=== PATIENT | female | born 1995 | race Hispanic/Latino ===

== ENCOUNTER 2017-05-14 14:42 | Emergency (ER) | payer MEDICAID ==
--- NOTE | 2017-05-14 15:48 | OBHP ---
Datetime: 05/14/2017 15:43 IP Adm Impression: , intrauterine IP Admit Plan: Discharge home Admit Comment, IP Provider: at 36=weeks ca,e with c/o dec movemnt. sh feels the baby but less, no ctxs, vbno lf. obhx primi pmh den med pnv all nkda psh den soch de zainab bpp 11/26 cep/post/wnl/6.5lb a/p at 36=weeks dec fm dc home ptl given po hyr f/u dr collazo on friday Pelvic Type - PN: Adequate Extremities - PN: Normal Abdomen - PN: Normal Back - PN: Normal Breast - PN: Normal Lungs - PN: Normal Heart - PN: Normal Thyroid - PN: Normal Neurologic - PN: Normal HEENT - PN: Normal General - PN: Normal FHR - Baseline A Provider: 130 Contraction Comments Provider: none EGA AdmitDate IP: 36.3 Vital Signs Provider: Reviewed; Within Normal Limits IP Chief Complaint: Decreased movement NICHD Variability Prov Fetus A: Moderate 6-25bpm NICHD Accel Fetus A IP Provider: 15X15 FHR Category Provider Fetus A: Category I Genitourinary Exam: Normal DTRs - PN: Normal
--- NOTE | 2017-05-14 15:54 | US ---
OB limited/biophysical profile Comparison: None available. Technique: Real-time ultrasound was performed through the pelvis. Findings: There is a single living fetus in cephalic presentation. Posterior placenta. The placenta is not previa. There are no adnexal masses or cysts evident. Cervix length measures approximately 4.0 cm. Measurements and calculations: Fetus has a composite sonographic age of 36 weeks 2 days. This calculation is based on the biparietal diameter, head circumference, abdominal circumference, and femur length. Estimated heart rate 140.7 beats per min. Estimated weight: 2883 g 432.5 g DAYDAY measures approximately 12.3 cm, within normal limits. Biophysical profile: movements 2/2 breathing 2/2 tone 2/2 Amniotic fluid 2/2 Total score impression: 11/26 Impression: Single living fetus with a composite sonographic age of 36 weeks 2 days. Estimated heart rate 140.7 beats per min. Biophysical profile of 8 out of 8.
--- NOTE | 2017-05-14 16:03 | OBDCSUM ---
Datetime: 05/14/2017 16:00 Discharged to, Provider: Home Follow up at, Provider: 05/20/17 Disch Instr Diet: Regular Follow up in weeks, Provider: dr collazo Disch Activity Restrictions: Nothing in vagina - [place], tampons, douche Discharge Comment, Provider: ptl given po hy Discharge Diagnosis Prov Other: 36week dec fm nst
[2017-05-14 20:42] VITALS: BP 113/67; PULSE 89
== END 2017-05-14 16:40 | disposition home or self-care (01) ==
LOC: C.EROB 14:42
DX: O36.8130 Decreased fetal movements, third trimester, not applicable or unspecified (principal); Z3A.36 36 weeks gestation of pregnancy

== ENCOUNTER 2017-05-25 09:21 | Inpatient (IN) | payer MEDICAID ==
[2017-05-25 09:53] VITALS: BMI 27.7
[2017-05-25] MEDS ORDERED: Lactated Ringer's 1,000 ML IV SCH ×2 (10:00)
--- NOTE | 2017-05-25 10:20 | OBADHP ---
Datetime: 05/25/2017 09:58 Admit Comment, IP Provider: This is a private patient of Dr. Barker 21 y.o. , LMP 08/23/16, RAFY 06/02/17, EGA 39 weeks, C/O Ctx - onset 05/24/17, 1000 hours; proceede d all day; stronger 05/25/17, 0100 hours, pain scale 10/10 every 3-4 minutes. (+) AFM; denies LOF, VB. Last had sexual intercourse 2 weeks ago. care; Dr. Barker; noted for anemia on iron. 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 Denies STIs; not candidate for Pap PMH: denies PSH: denies NKDA Meds: PNV, iron - each, QD Soc Hx: denies tobacco, illicit drug or EtOH use. With FOB x 1 yr; living together since 12/2016. Unemployed. Fam Hx: Mother and Father both alive. Doesn't knw their ages; both, no med issues. No known fam h/ o cancer P.E.: as above. WD in NAD. Awake, alert, oriented to time, person and place. Pleasant and cooperat jennifer. Accompanied by FOB Assessment: 21 y.o. P0, 39 weeks, active labor. Anemia on meds. GBS (-). Category 1 tracing. D/W patient epidural - receptive. Clincally stable Plan: 1) Admit 2) NPO 3) IVFs 4) Continuous EFM 5) Admission labs, incl HIV, RPR, UDS 6) Epidural 7) Anticipate vaginal delivery - as per, and discussed wiht Dr. Barker Weight - Estimated: 3632 Presentation-Admit: Vertex FHR - Baseline A Provider: 135 Contraction Comments Provider: irregular Comments, ACOG Physical Exam: Abdomen: Gravid. Soft. Non tender. Fundal height 7 cm All other systems reviewed and are negative Gestation - Est Wks by US: 39.0 IP Hx Assessment: The History has been Reviewed and is Current Vital Signs Provider: Reviewed; Within Normal Limits IP Chief Complaint: Uterine contractions NICHD Variability Prov Fetus A: Moderate 6-25bpm NICHD Accel Fetus A IP Provider: 15X15 FHR Category Provider Fetus A: Category I NICHD Decel Fetus A IP Provider: None Dilatation, Provider: 7 Effacement, Provider: 90 Station, Provider: -2 EGA AdmitDate IP: 38.6 IP Adm Impression: Term, intrauterine ; Active labor; Intact Membranes IP Admit Plan: Admit to unit; Initiate labor protocol Datetime: 05/14/2017 15:43 Pelvic Type - PN: Adequate Extremities - PN: Normal Abdomen - PN: Normal Back - PN: Normal Breast - PN: Normal Lungs - PN: Normal Heart - PN: Normal Thyroid - PN: Normal Neurologic - PN: Normal HEENT - PN: Normal General - PN: Normal Genitourinary Exam: Normal DTRs - PN: Normal
[2017-05-25 10:29] LABS: BASO % 0.2 % (0.0-2.0); EOS # 0.2 K/uL (0.0-0.7); EOS % 1.2 % (0.0-4.0); HEMOGLOBIN 11.1 g/dL (11.0-16.0); LYMPH # 2.3 K/uL (1.0-4.3); LYMPH % 15.7 % (20.0-40.0); MEAN CELL VOLUME 82.1 fL (81.0-99.0); MEAN CORPUSCULAR HEMOGLOBIN 27.4 pg (27.0-31.0); MEAN CORPUSCULAR HGB CONC 33.3 g/dL (33.0-37.0); MEAN PLATELET VOLUME 10.7 fL (7.2-11.7); MONO % 6.7 % (0.0-10.0); NEUT # 11.1 K/uL (1.8-7.0); NEUT % 76.2 % (50.0-75.0); NRBC % 0.1 % (0.0-2.0); RBC 4.04 Mil/uL (3.80-5.20); RED CELL DISTRIBUTION WIDTH 14.6 % (11.5-14.5); WHITE BLOOD COUNT 14.5 K/uL (4.8-10.8)
[2017-05-25] MEDS ORDERED: Bupivacaine HCl 0.25% PF (10 ml) Inj ONE (10:29)
[2017-05-25] MEDS ORDERED: Lidocaine Hydrochloride 5 ML INJ ONE (10:29)
[2017-05-25] MEDS ORDERED: Fentanyl/Bupivacaine HCl 250 ML EPI ONE (10:30)
[2017-05-25] MEDS ORDERED: Oxytocin 30 UNIT 30 UNITS/500 ML BAG IV PRN (10:44)
[2017-05-25] MEDS ORDERED: Oxytocin 30 UNIT 30 UNITS/500 ML BAG IV ONE (10:49)
[2017-05-25 10:53] LABS: ALBUMIN 3.3 g/dL (3.5-5.0); ALT/SGPT 13 U/L (9-52); AST/SGOT 30 U/L (14-36); BLOOD UREA NITROGEN 5 mg/dL (7-17); CALCIUM 9.3 mg/dl (8.6-10.4); GFR AFRICAN-AMERICAN > 60; GFR NON-AFRICAN AMERICAN > 60
[2017-05-25 11:09] LABS: URINE BACTERIA RARE (<OCC); URINE BILIRUBIN NEGATIVE (NEGATIVE); URINE BLOOD NEGATIVE (NEGATIVE); URINE CLARITY Clear (Clear); URINE COLOR Straw (YELLOW); URINE GLUCOSE (UA) NORMAL (Normal); URINE LEUKOCYTE ESTERASE 3+ Leu/uL (Negative); URINE NITRATE NEGATIVE (NEGATIVE); URINE PROTEIN NEGATIVE (NEGATIVE); URINE UROBILINOGEN NORMAL mg/dL (0.2-1.0)
[2017-05-25] MEDS ORDERED: Nalbuphine 20 mg/ml Inj (1 ml) ONE (11:24)
[2017-05-25] MEDS ORDERED: Nalbuphine 20 mg/ml Inj (1 ml) IVP PRN ×2 (11:30→13:00)
[2017-05-25 11:39] LABS: BARBITURATES, UR NEGATIVE (NEGATIVE); BENZODIAZEPINES, UR NEGATIVE (NEGATIVE); OPIATES, UR NEGATIVE (NEGATIVE)
[2017-05-25 11:53] LABS: PHENCYCLIDINE, UR NEGATIVE (NEGATIVE)
--- NOTE | 2017-05-25 12:00 | OBADHP ---
Datetime: 05/25/2017 11:59 FHR - Baseline A Provider: 130 Vital Signs Provider: Reviewed; Within Normal Limits NICHD Variability Prov Fetus A: Moderate 6-25bpm Dilatation, Provider: 9 Effacement, Provider: 100 Station, Provider: 0 Datetime: 05/25/2017 09:58 EGA AdmitDate IP: 38.6
--- NOTE | 2017-05-25 12:03 | OBPN ---
Datetime: 05/25/2017 11:59 IP Progress Impression: Normal progression of labor IP Procedures: Artificial ROM; Sterile Vag Exam IP Progress Plan: Continue present management Pool Provider: Positive Nitrazine Provider: Positive FHR - Baseline A Provider: 130 IP Progress Note Comment: pt was examinedat bed side ve 9/100/0 arom clear anticipate Vital Signs Provider: Reviewed; Within Normal Limits NICHD Accel Fetus A IP Provider: 15X15 FHR Category Provider Fetus A: Category I NICHD Variability Prov Fetus A: Moderate 6-25bpm Dilatation, Provider: 9 Effacement, Provider: 100 Station, Provider: 0 Datetime: 05/25/2017 09:58 Contraction Comments Provider: irregular Gestation - Est Wks by US: 39.0 Weight - Estimated: 3632 Presentation-Admit: Vertex NICHD Decel Fetus A IP Provider: None
[2017-05-25] MEDS ORDERED: Benzocaine/Menthol 20%-0.5% Topical Spray (60 ml) TOP PRN (12:04)
[2017-05-25] MEDS ORDERED: Measles, Mumps, and Rubella 0.5 ML VIAL SC ONE (12:04)
[2017-05-25] MEDS ORDERED: Oxycodone/Acetaminophen 5/325 mg Tab PO PRN ×2 (12:04→13:32)
[2017-05-25] MEDS ORDERED: Lidocaine 2% Inj (20ml) ONE (13:25)
[2017-05-25] MEDS ORDERED: Oxytocin 10 Units/ml Inj ONE (14:10)
[2017-05-25 19:58] LABS: BASO % 0.1 % (0.0-2.0); EOS % 0.1 % (0.0-4.0); HEMOGLOBIN 10.3 g/dL (11.0-16.0); LYMPH # 1.5 K/uL (1.0-4.3); LYMPH % 7.1 % (20.0-40.0); MEAN CELL VOLUME 82.1 fL (81.0-99.0); MEAN CORPUSCULAR HEMOGLOBIN 27.2 pg (27.0-31.0); MEAN CORPUSCULAR HGB CONC 33.2 g/dL (33.0-37.0); MEAN PLATELET VOLUME 11.2 fL (7.2-11.7); MONO # 1.3 K/uL (0.0-0.8); MONO % 6.2 % (0.0-10.0); NEUT % 86.5 % (50.0-75.0); PLATELET COUNT 97 K/uL (130-400); RBC 3.79 Mil/uL (3.80-5.20); RED CELL DISTRIBUTION WIDTH 14.1 % (11.5-14.5); WHITE BLOOD COUNT 20.8 K/uL (4.8-10.8)
[2017-05-25 20:23] LABS: ANISOCYTOSIS SLIGHT; BANDS 6 % (0-2); LYMPHOCYTE 9 % (20-40); MONOCYTE 3 % (0-10); NEUTROPHIL 82 % (50-75); PLATELET ESTIMATE DECREASED (NORMAL); TOTAL CELLS COUNTED 100
[2017-05-25 20:24] LABS: HYPOCHROMIC SLIGHT; LARGE PLATELETS PRESENT; OVALOCYTES SLIGHT; POIKILOCYTOSIS SLIGHT
[2017-05-26 00:31] VITALS: O2SAT 98
--- NOTE | 2017-05-26 07:38 | OBPPN ---
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
[2017-05-26 08:33] LABS: HEMOGLOBIN 9.8 g/dL (11.0-16.0); MEAN CELL VOLUME 81.9 fL (81.0-99.0); MEAN CORPUSCULAR HEMOGLOBIN 27.7 pg (27.0-31.0); MEAN CORPUSCULAR HGB CONC 33.8 g/dL (33.0-37.0); MEAN PLATELET VOLUME 11.1 fL (7.2-11.7); RBC 3.53 Mil/uL (3.80-5.20); RED CELL DISTRIBUTION WIDTH 14.4 % (11.5-14.5); WHITE BLOOD COUNT 16.5 K/uL (4.8-10.8)
--- NOTE | 2017-05-26 08:42 | OBDS ---
DELIVERY PERSONNEL Delivery Doctor: Andrew Barker MD Washcoat Wiper: Jordi Goins RN MATERNAL INFORMATION Delivery Anesthesia: Local Medications in Delivery: PITOCIN 20 UNIT S . METHERGINE 0.2 MG IM , CYTOTEC 1000 MCG DC Estimated Blood Loss (ml): 500 Placenta Cultured: No Maternal Complications: Hemorrhage Other Maternal Complications: EBL 500 POST DELIVERY Provider Comments: baby delverd i vera. end clean bladder swollen keep tubbs in nceine at. extra pitocin , cytotec and methergin given apgr [email or web address] com LABOR SUMMARY EDC: 06/02/2017 00:00 No. Babies in Womb: 1 Attempted: No Labor Anesthesia: IV Sedation LABOR INFORMATION Reason for Induction: Not Applicable Onset of Labor: 05/25/2017 12:00 Oxytocin: Augmentation Group B Beta Strep: Negative Antibiotics # of Doses: 0 Antibiotics Time of Last Dose: 0 Steroids Given: None Reason Steroids Not Administered: Not Applicable MEMBRANES Membranes Rupture Method: Artificial Rupture of Membranes: 05/25/2017 11:55 Length of Rupture (hrs): 2.13 Amniotic Fluid Color: Clear Amniotic Fluid Amount: Moderate STAGES OF LABOR Stage 3 hrs: 0 Stage 3 min: 1 Total Time in Labor hrs: 2 Total Time in Labor min: 4 VAGINAL DELIVERY Episiotomy: Right Mediolateral Laceration Extension: N/A Laceration Type: None Laceration Repair Note: repaired with 2 vcry and3 chromic Initial Vag Sponge Count: 10 Final Vag Sponge Count: 10 Initial Vag Sharps Count: 1 Final Vag Sharps Count: 1 Sponge Count Correct: Yes Sharps Count Correct: Yes BABY A INFORMATION Delivery Date/Time: 05/25/2017 14:03 Method of Delivery: Vaginal Born in Route : No : N/A Forceps: N/A Vacuum Extraction: N/A Shoulder Dystocia : No SHOULDER DYSTOCIA BABY A Infant Delivery Date/Time: 05/25/2017 14:03 PRESENTATION/POSITION BABY A Presentation: Cephalic Cephalic Presentation: Vertex Vertex Position: Left Occipital Anterior (Annotations: Data stored by [facility] on behalf of user) Breech Presentation: N/A PLACENTA INFORMATION BABY A Placenta Delivery Time : 05/25/2017 14:04 Placenta Method of Delivery: Spontaneous Placenta Status: Delivered SCORES BABY A Heart Rate 1 min: >100 bpm Resp Effort 1 min: Good Cry Reflex Irritability 1 min: Cough or Sneeze or Pulls Away Muscle Tone 1 min: Active Motion Color 1 min: Body [place], Extremities Blue Resuscitation Effort 1 min: Tactile Stimulation SCORE 1 MIN: 9 Heart Rate 5 min: >100 bpm Resp Effort 5 min: Good Cry Reflex Irritability 5 min: Cough or Sneeze or Pulls Away Muscle Tone 5 min: Active Motion Color 5 min: Body [place], Extremities Blue Resuscitation Effort 5 min: N/A SCORE 5 MIN: 9 INFANT INFORMATION BABY A Gestational Age at Delivery: 38.6 Gestational Status: Term Outcome : Liveborn Infant Condition : Stable Infant Sex: Female IDENTIFICATION/MEDS BABY A ID Band Number: [id number] ID Band Location: Left Leg; Left Arm Sensor Applied: Yes Sensor Number: [id number] Sensor Location : Cord Clamp WEIGHT/LENGTH BABY A Infant Birthweight (gms): 3105 Weight (lb): 6 Weight (oz): 13 Infant Length Inches: 20.50 Infant Length cms: 52.1 CORD INFORMATION BABY A No. Cord Vessels: 3 Nuchal Cord : N/A Cord pH Baby Venous: 7.34 Cord Blood Taken: Yes Infant Suction: Mouth ASSESSMENT BABY A Infant Complications: None Physical Findings at Delivery: Within Normal Limits Infant Respirations: Appears Normal Management Nurse Rn/ALS Called : No Transferred To: Remains with Mother
--- NOTE | 2017-05-27 06:58 | OBDCSUM ---
Datetime: 05/27/2017 06:55 Discharged to, Provider: Home Follow up at, Provider: 3week Discharge Diagnosis, Provider: Term Delivered Follow up in weeks, Provider: clinic Disch Activity Restrictions: No exercising; No lifting; No driving; Minimize walking; Minimize stair -climbing; No sexual activity; Nothing in vagina - [place], tampons, douche Discharge Comment, Provider: or home no sex motrimn prn f/u in 3week
--- NOTE | 2017-05-27 06:58 | OBPPN ---
Datetime: 05/27/2017 06:55 PP Pain Prov: Within normal limits PP Nausea Prov: Denies PP Flatus Prov: Yes PP BM Prov: Yes PP Abdomen/Uterus Prov: Normal PP Lochia Prov: Normal PP Extremities Prov: Normal PP Impression Prov: Normal progression PP Plan Prov: Discharge PP Progress Note Prov: pt was seen at bed side, pain under control,no n/v, tolerating deit,voiding,m in lochia, flatuas+ ppd@2 s/p msvd dc home no sex motrimn prn f/u in 3week Vital Signs Provider PP: Reviewed; Within Normal Limits
[2017-05-27 08:33] VITALS: BP 117/50; PULSE 65; RESP 18
[2017-05-27] MEDS ORDERED: Measles, Mumps, and Rubella 0.5 ML VIAL SC ONE (10:00)
[2017-05-27 21:24] VITALS: TEMP 97
== END 2017-05-27 16:20 | disposition home or self-care (01) | DRG 373 ==
LOC: C.EROB 09:21 → C.4D 09:51 → C.4M 16:57
PROVIDERS: ADMIT Obstetrics & Gynecology; ATTEND Obstetrics & Gynecology
PROC: 10E0XZZ Delivery of Products of Conception, External Approach (ICD-10-PCS; principal; 2017-05-25)
PROC: 0W8NXZZ Division of Female Perineum, External Approach (ICD-10-PCS; 2017-05-25)
PROC: 10907ZC Drainage of Amniotic Fluid, Therapeutic from Products of Conception, Via Natural or Artificial Opening (ICD-10-PCS; 2017-05-25)
DX: O99.02 Anemia complicating childbirth (principal); D64.9 Anemia, unspecified; Z37.0 Single live birth; Z3A.38 38 weeks gestation of pregnancy